=== PATIENT | male | born 1985 | race American Indian/Alaskan Native ===

== ENCOUNTER 2017-09-03 09:57 | Emergency (ER) | payer SELFPAY ==
[2017-09-03 10:07] VITALS: BP 128/85
--- NOTE | 2017-09-03 10:50 | Emergency Department Report ---
Blank Doc - Documentation Documentation: Patient is a 32-year-old -Polish male with past medical history of hypertension who has been off of his lisinopril/hydrochlorothiazide for approximately week. Patient now is noticing that he has some lower extremity swelling and tightness. The patient also has had some decreased urination as well. Brief physical exam patient's lungs are clear does have 1+ edema up to the mid calf. Patient will have his renal function checked. The patient be reassessed.
--- NOTE | 2017-09-03 11:38 | Emergency Department Report ---
ED Lower Extremity HPI - General Chief Complaint: Extremity Injury, Lower Stated Complaint: SWOLLEN FEET/HIGH BP Time Seen by Provider: 09/03/17 10:28 Source: patient Mode of arrival: Ambulatory Limitations: No Limitations - History of Present Illness Initial Comments: Patient is a 32-year-old -[place] male with past medical history of hypertension who has been off of his lisinopril/hydrochlorothiazide for approximately week. Patient now is noticing that he has some lower extremity swelling and tightness. The patient also has had some decreased urination as well. Brief physical exam patient's lungs are clear does have 1+ edema up to the mid calf. Patient will have his renal function checked. The patient be reassessed. Onset/Timin -: month(s) Injury: Leg: Right, Left (bilat le edema ) Type of Injury: other (htn essential chronic ) Place: home Severity: mild Improves With: other (elevation) Worsens With: other (prolonged standing walking ) Associated Symptoms: swelling - Related Data Previous Rx's Medication Instructions Recorded Last Taken Type ALBUTEROL Inhaler [ProAir HFA 2 puff IH QID PRN #1 inhalation 09/03/17 Unknown Rx Inhaler] Hydrochlorothiazide [HCTZ] 25 mg PO QDAY #30 tablet 09/03/17 Unknown Rx Lisinopril 20 mg PO DAILY #30 tablet 09/03/17 Unknown Rx Allergies Allergy/AdvReac Type Severity Reaction Status Date / Time No Known Allergies Allergy Unverified 09/03/17 10:05 ED Review of Systems ROS: Stated complaint: SWOLLEN FEET/HIGH BP Other details as noted in HPI Constitutional: denies: chills, fever Eyes: denies: eye pain, eye discharge, vision change ENT: denies: ear pain, throat pain Respiratory: denies: cough, shortness of breath, wheezing Cardiovascular: edema (bilat LE edema ). denies: chest pain, palpitations, dyspnea on exertion, orthopnea, syncope, paroxysmal nocturnal dyspnea Endocrine: no symptoms reported Gastrointestinal: denies: abdominal pain, nausea, diarrhea Genitourinary: denies: urgency, dysuria Musculoskeletal: denies: back pain, joint swelling, arthralgia Skin: denies: rash, lesions Neurological: denies: headache, weakness, paresthesias Psychiatric: denies: anxiety, depression Hematological/Lymphatic: denies: easy bleeding, easy bruising ED Past Medical Hx - Past Medical History Hx Hypertension: Yes Hx Asthma: Yes Additional medical history: gout, scoliosis - Social History Smoking Status: Never Smoker Substance Use Type: None - Medications Home Medications: Home Medications Medication Instructions Recorded Confirmed Last Taken Type ALBUTEROL Inhaler [ProAir HFA 2 puff IH QID PRN #1 inhalation 09/03/17 Unknown Rx Inhaler] Hydrochlorothiazide [HCTZ] 25 mg PO QDAY #30 tablet 09/03/17 Unknown Rx Lisinopril 20 mg PO DAILY #30 tablet 09/03/17 Unknown Rx ED Physical Exam - General Limitations: No Limitations General appearance: alert, in no apparent distress - Head Head exam: Present: atraumatic, normocephalic - Eye Eye exam: Present: normal appearance - ENT ENT exam: Present: mucous membranes moist - Neck Neck exam: Present: normal inspection, tenderness, full ROM, other (no jvd). Absent: lymphadenopathy, thyromegaly - Respiratory Respiratory exam: Present: normal lung sounds bilaterally. Absent: respiratory distress, wheezes, rhonchi, chest wall tenderness - Cardiovascular Cardiovascular Exam: Present: regular rate, normal rhythm, normal heart sounds. Absent: systolic murmur, diastolic murmur, rubs, gallop, JVD, S3, S4 - GI/Abdominal GI/Abdominal exam: Present: soft, normal bowel sounds. 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 pt is ambulatory no MANJARREZ ). Absent: tenderness, joint swelling, calf tenderness - Back Exam Back exam: Present: normal inspection, full ROM. Absent: tenderness, CVA tenderness (R), CVA tenderness (L), muscle spasm, paraspinal tenderness, vertebral tenderness, rash noted - Neurological Exam Neurological exam: Present: alert, oriented X3, CN II-XII intact, normal gait, reflexes normal. Absent: motor sensory deficit - Psychiatric Psychiatric exam: Present: normal affect, normal mood - Skin Skin exam: Present: warm, dry, intact, normal color, rash (eczema right ac ) ED Course Vital Signs 09/03/17 10:05 Temperature 98.5 F Pulse Rate 64 Respiratory 18 Rate Blood Pressure 128/85 O2 Sat by Pulse 97 Oximetry ED Lower Extremity MDM - Lab Data Result diagrams: 09/03/17 12:31 - Medical Decision Making Patient nonadherent with lisinopril hospital thiazide states hadn't had Accuretic in over a month plan refill lisinopril 20 mg thiazide 25 mg a separate prescriptions As lisinopril is free at [facility] and hydrochlorothiazide pt will [facility] up with [facility] 2-3 days for pcp affilliation . pt verbalized agreementa and understanding of discharge and treatment plan. Critical care attestation.: If time is entered above; I have spent that time in minutes in the direct care of this critically ill patient, excluding procedure time. ED Disposition Clinical Impression: Bilateral leg edema Disposition: DC-01 TO HOME OR SELFCARE Is pt being admited?: No Does the pt Need Aspirin: No Condition: Stable Instructions: Leg Edema (ED) Prescriptions: ALBUTEROL Inhaler [ProAir HFA Inhaler] 2 puff IH QID PRN #1 inhalation PRN Reason: Shortness Of Breath Hydrochlorothiazide [HCTZ] 25 mg PO QDAY #30 tablet Lisinopril 20 mg PO DAILY #30 tablet Referrals: [facility] [Outside] - 3-5 Days Forms: Work/School Release Form(ED) Time of Disposition: 13:29
[2017-09-03 13:10] LABS: BUN/Creatinine Ratio 10; Blood Urea Nitrogen 10 mg/dL (9-20); Hemolysis Index 7
== END 2017-09-03 13:38 | disposition home or self-care (01) ==
LOC: ED 09:57
DX: R22.41 Localized swelling, mass and lump, right lower limb (principal); I10 Essential (primary) hypertension; J45.909 Unspecified asthma, uncomplicated
CPT/HCPCS: 36415; 80048; 99283